=== PATIENT | female | born 1930 | race Caucasian/White ===

== ENCOUNTER 2016-05-18 13:17 | Inpatient (IN) | payer OTHER ==
[2016-05-18] VITALS (8 sets, daily range): BP systolic 154–166; BP diastolic 68–80
[~2016-05-18] VITALS: Ht 160 cm; Wt 82.7 kg
--- NOTE | ~2016-05-18 | 2DMMODE ---
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 Indications Sepsis, repiratory failure. Hx: Pacemaker 2D Dimensions RVDd: 40.53 mm LVEF(%): 54.24 (>50%) IVSd: 10.10 (7-11mm) LVOT Diam: 19.40 (18-24mm) LVDd: 40.73 mm PWd: 8.78 (7-11mm) LVDs: 29.44 (25-40mm) Hidalgo's LVEF: 54.24 % Volumes Left Atrial Volume (Systole) Single Plane 4CH: 59.80 mL Single Plane 2CH: 60.22 mL LA ESV Index: 35.00 mL/m2 Aortic Valve AoV Peak Charlie.: 1.63 m/s AO Peak Gr.: 10.63 mmHg LV Max P.60 mmHg LV Max: 1.07 m/s Mitral Valve MV PHT: 44.94 ms MV E Max Charlie.: 1.25 m/s E/A Ratio: 3.6 MV A Charlie.: 0.35 m/s MV Decel. Time: 154.98 ms [facility] [place] [address] [place] [address] 2 D/M-MODE ECHOCARDIOGRAM Name: KIM MOYER [place] Room #: [facility] IN M.R.#: [id number] Admission: 05/18/16 Attend Phys: Jenni Rubi Discharge: Date of : 31 Date of Service: 05/19/16 1229 Report #: [id number] Pulmonary Valve PV Peak Charlie.: 1.11 m/s PV Peak Gr.: 4.94 mmHg Tricuspid Valve TR Peak Charlie.: 3.08 m/s RAP Estimate: 10.00 mmHg TR Peak Gr.: 37.88 mmHg RVSP: 48.00 mmHg Left Ventricle The left ventricle is normal size. There is normal LV segmental wall motion. There is normal left ventricular wall thickness. Left ventricular systolic function is normal. LVEF is 55-60%. Difficult to assess due to paced rhythm. Right Ventricle Right ventricle is mildly dilated. The right ventricular systolic function appears normal. Pacemaker lead is present in the right ventricle. Atria Left atrium is mildly dilated. Right atrium is moderately dilated. Aortic Valve The aortic valve is normal in structure. Mild aortic regurgitation. There is no aortic valvular stenosis. Mitral Valve Mitral valve leaflets are mildly thickened. Mild mitral annular calcification. Mild mitral regurgitation. Tricuspid Valve The tricuspid valve is normal in structure. There is moderately severe tricuspid regurgitation. The right atrial pressure is estimated at 10 mmHg. There is moderate pulmonary hypertension with an estimated PAP of 48mmHg. Pulmonic Valve Pulmonic valve is not well visualized. Great Vessels The aortic root is normal in size. Descending aorta is not well visualized. IVC is dilated and collapses <50% with inspiration. Pericardium [facility] [address] [address] 2 D/M-MODE ECHOCARDIOGRAM Name: KIM MOYER [place] Room #: 250-P ADM IN M.R.#: [id number] Admission: 05/18/16 Attend Phys: Jenni Rubi Discharge: Date of : 31 Date of Service: 05/19/16 1229 Report #: [id number] There is no pericardial effusion. <Conclusion> The left ventricle is normal size. Left ventricular systolic function is normal. Right ventricle is mildly dilated. Pacemaker lead is present in the right ventricle. Left atrium is mildly dilated. Right atrium is moderately dilated. Mild aortic regurgitation. Mild mitral regurgitation. There is moderately severe tricuspid regurgitation. The right atrial pressure is estimated at 10 mmHg. There is moderate pulmonary hypertension with an estimated PAP of 48mmHg. <ELECTRONICALLY SIGNED> By: Pete Cool MD 05/19/16 1229 1229 1229 Pete Cool MD /INF
--- NOTE | ~2016-05-18 | HC ---
[facility] [place] [address] CONSULTATION Name: KIM MOYER Room #: 214-P ADM IN M.R.#: [id number] Admission: 05/18/16 Attend Phys: Shamir Navas MD Discharge: Date of : 31 Report #: [id number] THIS REPORT FOR: //name// CC: Shamir Heaton John HISTORY OF PRESENT ILLNESS: The patient is an 85-year-old white female, premorbidly independent, active, ambulatory without gait aids, had been doing some yard work when she pulled a muscle in her back. She was admitted and was diagnosed with community-acquired pneumonia. Her course was complicated with sepsis and she was noted to have a loculated pleural effusion with right empyema and marked leukocytosis. She underwent a bronchoscopy with the right video assisted thoracotomy with decortication on 05/20. Her course has been complicated by acute renal insufficiency and anasarca. She has been noted to have some dysphagia and has been on a nectar thickened liquid diet. She is status post a video swallow study earlier today with results pending. She also has had issues with malnutrition, noted to be severe protein-calorie malnutrition with decreased albumin and is on Dobhoff feeding for supplementation. She also has a diagnosis of a critical illness myopathy. We are seeing her in rehabilitation medicine consultation. Wound care is following as well for a suspected deep tissue injury coccyx, which is noted to be improving. PAST MEDICAL HISTORY: Hypertension, basal cell carcinoma, and osteoarthritis. PAST SURGICAL HISTORY: Hysterectomy. FAMILY HISTORY: Noncontributory. SOCIAL HISTORY: Lives with her , house multilevel with 6 steps in and 13 inside. She is premorbidly independent and ambulatory without gait aids. underwent coronary artery bypass grafting surgery about 6-8 weeks ago. HABITS: No history of chronic alcohol or tobacco use. ALLERGIES: PENICILLIN. MEDICATIONS: Please see the full medication listing. REVIEW OF SYSTEMS: Notes frustrated with her current condition. No specific joint complaints. No current complaints of chest pain or shortness of breath or abdominal discomfort. PHYSICAL EXAMINATION: GENERAL: An 85-year-old white female, somewhat overweight, no obvious distress. She is alert, somewhat cantankerous, but is cooperative[place] [address] CONSULTATION Name: KIM MOYER [place] Room #: 214-[facility] IN M.R.#: [id number] Admission: 05/18/16 Attend Phys: Shamir Navas MD Discharge: Date of : 31 Report #: [id number] She has a Dobhoff feeding tube in place and also is on nasal prong O2, 2 liters. VITAL SIGNS: Last recorded temperature 97.7, pulse 66, respirations 16, and blood pressure 124/43. EXTREMITIES: She has functional range of motion of the upper extremity, strength is a grade 3+ to 4-/5. Lower extremities, no focal calf swelling, functional range of motion with strength a grade 3+/5. Tone appeared to be intact. She is currently max assist times 2 for transfers and bed mobility is max assist times 2. ASSESSMENT: An 85-year-old white female with the following problem list: 1. Critical illness myopathy. 2. Right empyema, status post thoracotomy with decortication on 05/20. 3. Acute renal failure with improving diuresis. 4. Anasarca. 5. Protein-calorie malnutrition with hypoalbuminemia, currently with Dobhoff feeding. 6. Suspected deep to issue injury of the coccyx, noted to be improving. 7. Leukocytosis, which has resolved. 8. Anemia, which she is being monitored. PLAN: I encouraged her as far as further progressing in therapies and trying to improve as far as her endurance, strength and working in ADLs. She certainly may benefit from an acute in-hospital inpatient rehabilitation stay for therapies. I encouraged her in this regard. Discussed with case management. We will follow along with you. By: 1255 1551 Shamir Koroma MD /nt
--- NOTE | ~2016-05-18 | HC ---
[facility] [place] [address] CONSULTATION Name: KIM MOYERSA Room #: 240-P ADM IN M.R.#: [id number] Admission: 05/18/16 Attend Phys: Amaury May MD Discharge: Date of : 31 Report #: [id number] THIS REPORT FOR: //name// CC: Shamir Nunnva REASON FOR CONSULTATION: I was asked to evaluate the patient concerning pneumonia. HISTORY OF PRESENT ILLNESS: The patient is an 85-year-old, who presented to the Emergency Room with approximately 4-day history of right-sided back and chest discomfort. She thought she had pulled muscle. She has had no documented fever or chills. She has been short of breath with some cough, no sputum production, no previous pneumonia history. She is a nonsmoker with no alcohol intake. She has been caring through her , who just had open heart surgery about 6 weeks ago. PAST MEDICAL HISTORY: Hypertension, basal cell carcinoma, osteoarthritis. PAST SURGICAL HISTORY: Hysterectomy. FAMILY HISTORY: Noncontributory. SOCIAL HISTORY: As noted above with no HIV risk factors. No tuberculosis exposure. IMMUNIZATIONS: Up to date for influenza and pneumonia vaccine. ALLERGIES: She is allergic to PENICILLIN. Does not know the reaction, although does think that she has taken amoxicillin without issue. MEDICATIONS: Prior to admission included Benicar, hydrochlorothiazide, amlodipine, Toprol-XL, Xanax, estrogen, Celebrex, aspirin, and fish oil. REVIEW OF SYSTEMS: She has had no nausea, vomiting or diarrhea. No dysuria or frequency. No rashes. She says for the last several weeks, she has not felt well and has had a poor appetite. She feels she has lost several pounds of weight. PHYSICAL EXAMINATION: VITAL SIGNS: Afebrile and hemodynamically stable. She is now on 15 liters face mask. GENERAL: She was alert and cooperative. She was with coarse upper airway sounds. Minimal cough. HEENT: Unremarkable. NECK: Supple. She has a permanent pacemaker, left chest. LUNGS: Decreased breath sounds in the right posterior chest. [facility] [address] [place] [address] CONSULTATION Name: KIM MOYER [place] Room #: 240-P ADM IN M.R.#: [id number] Admission: 05/18/16 Attend Phys: Amaury May MD Discharge: Date of : 31 Report #: [id number] HEART: Regular, without murmur. ABDOMEN: Soft, nontender, no hepatosplenomegaly or mass. EXTREMITIES: Unremarkable. LABORATORY STUDIES: Sodium 120, potassium 3.6, bicarbonate 25, creatinine 1.1, alkaline phosphatase 386, ALT 25, hemoglobin 12.2, white count 45.5 with 4% bands, platelet count was 519,000 on 3.5 liters of oxygen. She had a pO2 of 57, pCO2 of 31, pH 7.47 with a lactate of 1.7. Urinalysis unremarkable. Ultrasound of the lower extremities negative for DVT. Chest x-ray shows right pneumonia with effusion. CT scan of the chest shows extensive right lung effusion with some loculation and fairly compressed right lower lobe. Blood cultures pending. No sputum able to be obtained. IMPRESSION: An 85-year-old with extensive right chest process including pneumonia and I suspect empyema. She has no fever, although she has a profound leukocytosis. A CT scan also showed some increased adenopathy in the chest. Recommend continuing treatment in the intensive care unit. Pulmonary medicine assist in case patient will require intubation. Repeat her blood gases now. We will arrange for right chest thoracentesis. We will continue with antibiotic coverage including vancomycin, meropenem, and Levaquin, pending further studies. Blood cultures have been obtained. We will also check echocardiogram. <ELECTRONICALLY SIGNED> By: Mitchell Victoria MD 05/22/16 1654 2043 0333 Mitchell Victoria MD /nt
--- NOTE | ~2016-05-18 | O ---
[facility] [place] [address] OPERATIVE REPORT Name: KIM MOYER [place] Room #: 240-P ADM IN M.R.#: [id number] Admission: 05/18/16 Attend Phys: Amaury May MD Discharge: Date of : 31 Report #: [id number] THIS REPORT FOR: //name// CC: Amaury Heaton John DATE OF SERVICE: 05/20/2016 PREOPERATIVE DIAGNOSIS: Empyema, right chest. POSTOPERATIVE DIAGNOSIS: Empyema, right chest. PROCEDURE: Bronchoscopy, right video-assisted thoracoscopy, right thoracotomy with decortication. SURGEON: Amaury May M.D. BOOT REPAIRER: Rito. ANESTHESIA: General. INDICATIONS: The patient is an 85-year-old with loculated pleural effusion. The patient has important pulmonary dysfunction related to this pleural space problem. FINDINGS AND TECHNIQUE: After general anesthesia was established, flexible diagnostic bronchoscopy was performed. There were some thick yellow secretions seen in the airway which were tenacious, but there was no other exuberant production of purulent sputum. No endobronchial lesions were noted. Double lumen endotracheal tube was placed and its position ascertained under bronchoscopic guidance. The patient was positioned with right side up. Exposure was obtained through video-assisted thoracoscopy ports. A loculated pleural effusion was seen with a mix of straw colored fluid and thick serofibrinous debris covering and compressing the lung. I thought that we would do our best job by performing a thoracotomy and decortication. As such, the incision was extended to perform a posterolateral thoracotomy. The entire lung was involved with serofibrinous debris with areas of loculated gel like fluid, all of this was decorticated down to the level of the visceral and parietal pleura. All 3 lobes were involved. The worst area of course was the lowest lobe and we entered a small area that appeared to be a loculated abscess at the anterior and lowest extent of the oblique fissure. [facility] [address] [address] OPERATIVE REPORT Name: KIM MOYER [place] Room #: 240-[facility] IN .R.#: [id number] Admission: 05/18/16 Attend Phys: Amaury May MD Discharge: Date of : 31 Report #: [id number] Samples were sent for pathology and culture. When we felt that the decortication was complete, the chest was irrigated with copious amounts of saline, 4 chest tubes were placed to drain the anterior, lateral, posterior, and inferior pleural surfaces and then the chest was closed in the usual fashion. The patient was taken to the recovery area in good condition having tolerated the procedure well. <ELECTRONICALLY SIGNED> By: Amaury May MD 05/24/16 1107 0840 1303 Amaury May MD /nt
--- NOTE | ~2016-05-18 | H ---
[facility] [place] [address] HISTORY AND PHYSICAL Name: KIM MOYER [place] Room #: 240-P ADM IN M.R.#: [id number] Admission: 05/18/16 Attend Phys: Amaury May MD Discharge: Date of : 31 Report #: [id number] THIS REPORT FOR: //name// CC: Shamir Heaton John DATE OF SERVICE: 05/18/2016 CHIEF COMPLAINT: Weakness and shortness of breath. HISTORY OF PRESENT ILLNESS: The patient is an 85-year-old female who came in the Emergency Room today with multiple complaints that began about 4 days ago. She said she was in her usual state of health on Saturday this week when she was doing some yard work and felt that she "pulled a muscle" in her back after moving a garden hose. She said the pain was so much worse with a deep breath turning her coughing that she ended up either lying in bed or sitting in a chair all week. The patient states that she has not been eating well and complained of nausea and has been "out of it" for a couple of days. Her said that all she has really been doing is drinking some fluids. She has, however, continued taking her home medications. She denies feeling short of breath at rest but felt tired when trying to move. She complained of cough and sinus congestion but denied any fever. PAST MEDICAL HISTORY: Hypertension, basal cell carcinoma, osteoarthritis. PAST SURGICAL HISTORY: Hysterectomy. FAMILY HISTORY: Noncontributory. SOCIAL HISTORY: No chronic alcohol or tobacco use. She lives at home with her . ALLERGIES: PENICILLIN. MEDICATIONS: Benicar/HCTZ, amlodipine, Toprol-XL, Xanax, estrogen, Celebrex, aspirin, fish oil. REVIEW OF SYSTEMS: She denies chest pain, palpitations, abdominal pain, nausea, vomiting, diarrhea, constipation, dysuria, syncope. PHYSICAL EXAMINATION: VITAL SIGNS: Temperature 36.4, pulse 79, respirations 19, blood pressure 166/80, initial room air sat was 86%, now at 93% on a ventimask. GENERAL: She is an elderly female who looks ill, but she is awake and alert, in no distress. HEAD AND NECK: Unremarkable. [facility] [address] [place] [address] HISTORY AND PHYSICAL Name: KIM MOYER [place] Room #: 240-[facility] IN M.R.#: [id number] Admission: 05/18/16 Attend Phys: Amaury May MD Discharge: Date of : 31 Report #: [id number] LUNGS: There is some expiratory wheezing bilaterally. HEART: Regular, no murmur. ABDOMEN: Soft, normoactive bowel sounds. EXTREMITIES: Trace nonpitting edema. Distal pulses 2+. NEUROLOGIC: She moves all extremities. Global strength 3-4/5 throughout. She knew that she was in [facility]. Venous Doppler ultrasound of the legs was negative. CTA of the chest was negative for PE. Chest x-ray shows a dense right-sided infiltrate. LABORATORY DATA: Reviewed with remarkable findings of white count of 45 with 86% segs but only 4% bands. Sodium of 119. ASSESSMENT: 1. Community acquired pneumonia. 2. Hyponatremia. 3. Sepsis. 4. Moderate protein calorie malnutrition with albumin 3.9. PLAN: Pancultures have been obtained and antibiotics had been administered. ID and Pulmonary Services to see her along with the Renal Service for the hyponatremia. This may be related to poor intake in the last few days and use of hydrochlorothiazide at home. Lovenox for DVT prophylaxis and she will be admitted to ICU. <ELECTRONICALLY SIGNED> By: Shamir Navas MD 05/21/16 1301 1741 1902 Shamir Navas MD /nt
--- NOTE | ~2016-05-18 | HC ---
[facility] [place] [address] CONSULTATION Name: KIM MOYERSA Room #: 240-P ADM IN M.R.#: [id number] Admission: 05/18/16 Attend Phys: Amaury May MD Discharge: Date of : 31 Report #: [id number] THIS REPORT FOR: //name// CC: Shamir Heaton John DATE OF SERVICE: 05/19/2016 REASON FOR CONSULTATION: We were asked to see the patient in consultation for loculated pleural effusion. HISTORY OF PRESENT ILLNESS: The patient is an 85-year-old with acute onset of right chest pain and shortness of breath approximately 4 days ago. Initially, the patient felt as though she had pulled the muscle in her back after doing some yardwork. Pain became worse and had a pleuritic component and then was associated with coughing, shortness of breath and sputum production. The patient denies having fever. These symptoms worsened until the patient was admitted on 05/18/2016. After admission, the patient was found to have a loculated pleural effusion. We note that thoracentesis was done yesterday, 650 mL of fluid was obtained, but the patient continued to have a pleural space problem. PAST MEDICAL HISTORY: Significant for hypertension, basal cell carcinoma and osteoarthritis. MEDICATIONS IN HOME: Benicar, hydrochlorothiazide, amlodipine, Toprol, Xanax, estrogen, Celebrex, aspirin and fish oil. ALLERGIES: PENICILLIN. FAMILY HISTORY: Not significant. REVIEW OF SYSTEMS: CONSTITUTIONAL: Generalized weakness positive. No fever. EYES: No vision changes. HEENT: No headache. No nasal congestion. No sore throat. RESPIRATORY: Positive for shortness of breath, sputum production and cough. CARDIAC: No anginal pain. The chest pain the patient has had is pleuritic and right-sided and shoulder pain. No palpitations. GASTROINTESTINAL: No nausea, vomiting or diarrhea. GENITOURINARY: No dysuria or frequency. SKIN: No rash or infection. MUSCULOSKELETAL: As mentioned back pain. No other bone or joint discomfort. NEUROLOGICAL: No motor or sensory dysfunction. PSYCHIATRIC: No depression or anxiety. [facility] [address] [place] [address] CONSULTATION Name: KIM MOYER [place] Room #: 240-P [facility] IN M.R.#: [id number] Admission: 05/18/16 Attend Phys: Amaury May MD Discharge: Date of : 31 Report #: [id number] HEMATOLOGIC AND LYMPHATIC: No swelling. No anemia. ENDOCRINE: No hot or cold intolerance. PHYSICAL EXAMINATION: VITAL SIGNS: Temperature 36.8, pulse rate 60, respiratory rate 29, O2 sat 92 on 15 liters of nonrebreather and blood pressure 132/61. HEENT: Normocephalic. Pupils equal and round. Gaze conjugate. No icterus noted. NECK: No lymphadenopathy. No bruit. CHEST: Decreased breath sounds, right side. HEART: Rhythm regular. No murmurs. ABDOMEN: Soft. No mass and no tenderness. EXTREMITIES: No clubbing, cyanosis or edema. 2+ radial pulses. SKIN: Warm and pink normal turgor. NEUROLOGICAL: No motor or sensory dysfunction. PSYCHIATRIC: Shows insight into problem and answers questions appropriately. The patient is oriented and appropriate. IMPRESSION: The patient appears to be weak without acute distress, but clearly requires high oxygen flow and has somewhat increased sense of vigilance due to respiratory dysfunction but grade 2 pulmonary dysfunction with secretions and tachypnea. ASSESSMENT AND PLAN: The patient has loculated right pleural effusion, suspicious for empyema and parapneumonic effusion. I have recommended that the patient have surgical exploration with video-assisted thoracoscopy and possible thoracotomy for decortication. Risks and details of this were discussed. Options and alternatives were reviewed. The patient and family understand all of this and agreed with this approach. The timing of surgery was discussed and we will either perform surgery tomorrow or Saturday. Thank you for the consult. <ELECTRONICALLY SIGNED> By: Amaury May MD 05/22/16 0829 1646 50 Amaury May MD /nt
--- NOTE | ~2016-05-18 | S ---
[facility] [address] SURGICAL PATH RPT PROCEDURE Name: NUZHAT CAMARILLO [place] Room #: 240-P ADM IN M.R.#: [id number] Admission: 05/18/16 Date of : 31 Discharge: Report #: [id number] Path Case #: [id number] PATHOLOGY REPORT COLLECTION DATE: 05/20/2016 RECEIVED DATE: 05/21/2016 SUBMITTING PHYS: Dr. Amaury May OTHER PHYS: Dr. Shamir Toledo SPECIMEN(S) RECEIVED: A.Right pleural exudate * * * * * * * * * * * * FINAL DIAGNOSIS: "Right pleural exudate," resection: - Pleura with acute and chronic inflammation, necrosis, granulation tissue, and fibrinous exudate consistent with empyema. (JORDANA:; d/t: 05/22/16) PATHOLOGIST: Jocelin Piña M.D. REPORT ELECTRONICALLY SIGNED BY: Jocelin Piña M.D. DATE/TIME: 05/22/2016 15:45 * * * * * * * * * * * * GROSS PATHOLOGY: The specimen is received in formalin, labeled "Nuzhat Camarillo and right pleural exudate." Received is a 12 x 6.5 x 3.0 cm aggregate of blood-tinged, diaz-lewis, rubbery, and necrotic appearing soft tissue. The specimen is serially sectioned and representatively submitted in cassette A1. (TTL; 05/21/2016) CLINICAL HISTORY: Pre-op diagnosis: Shortness of breath Post-op diagnosis: Empyema INITIAL CPT CODE(S): 60891 Professional services performed by [facility] at [facility] [address], [place] [address] Technical services performed by [facility] at [address] [place] [id number]. [facility] [address] [place] [address] SURGICAL PATH RPT PROCEDURE Name: NUZHAT CAMARILLO [place] Room #: 240-P [facility] IN .R.#: [id number] Admission: 05/18/16 Date of : 31 Discharge: Report #: [id number] Path Case #: [id number] [facility] [address] [address] PHONE: [phone] DIRECTOR: Shelton Romo M.D. * * * END OF REPORT * * *
--- NOTE | ~2016-05-18 | HC ---
[facility] [place] [address] CONSULTATION Name: KIM MOYERSA Room #: 240-P ADM IN M.R.#: [id number] Admission: 05/18/16 Attend Phys: Amaury May MD Discharge: Date of : 32 Report #: [id number] THIS REPORT FOR: //name// CC: Shamir Lopez REASON FOR CONSULTATION: Hyponatremia. REASON FOR PRESENTATION: Right-sided chest pain. HISTORY OF PRESENT ILLNESS: This is an 85-year-old who presented with sudden-onset right-sided chest pain associated with shortness of breath while working in the garden. No fever or chills. No cough or hemoptysis. She had felt somewhat weak in the last couple of days. She had reported that she had decreased p.o. intake. She took some Aleve in the last couple of days due to the chest pain. She presented to the emergency room for further evaluation and management. She initially thought that she pulled a muscle. However, she was found to have a loculated right-sided pleural effusion. On presentation, she was also found to be hyponatremic with sodium of 119. I was consulted to manage her hyponatremia. Looking back, this is all new. She never had any issues with hyponatremia in the past. She is not known to have any chronic kidney related diseases. PAST MEDICAL HISTORY: 1. Hypertension. 2. Hysterectomy. 3. Tonsillectomy. MEDICATIONS: 1. Amlodipine. 2. Olmesartan-hydrochlorothiazide. 3. Metoprolol. 4. Celebrex. 5. Aspirin. ALLERGIES: PENICILLIN. FAMILY HISTORY: Significant for hypertension and diabetes mellitus. SOCIAL HISTORY: No drug or alcohol abuse. She lives with her . REVIEW OF SYSTEMS: GENERAL: Significant for weakness. CARDIOVASCULAR: Significant for shortness of breath. PULMONARY: No cough or hemoptysis. GASTROINTESTINAL: Decreased p.o. intake. GENITOURINARY: No frequency. No urgency. [facility] [address] [place] [address] CONSULTATION Name: KIM MOYER [place] Room #: 240-P [facility] IN .R.#: [id number] Admission: 05/18/16 Attend Phys: Amaury May MD Discharge: Date of : 32 Report #: [id number] PHYSICAL EXAMINATION: GENERAL: She is alert, oriented, in no apparent distress. However, she easily de-saturates when taken off the mask. VITAL SIGNS: Pulse was 80, blood pressure 140/69. HEAD AND NECK: No jugular venous distention, no bruit, no thyromegaly. CHEST: Decreased air entry on the right side. CARDIOVASCULAR: No rub detected. ABDOMEN: Soft, nontender. LOWER EXTREMITIES: Trace edema. LABORATORY DATA: Laboratory values reviewed. White blood cell count down to 41.3. Chemistry revealed that her sodium was up to 124. Urine with a specific gravity of 1.025. IMAGES: CTs and chest x-rays reviewed. ASSESSMENT, IMPRESSION AND PLAN: 1. Hyponatremia. 2. Loculated right-sided pleural effusion. 3. Hypertension. 4. Her hyponatremia is multifactorial with ongoing chest process along with being on hydrochlorothiazide and nonsteroidals including Celebrex and Aleve. 5. Discontinue the current free water D5 half normal. 6. One dose Lasix. 7. Should correct by stopping the offending agent. 8. P.o. intake encouraged. 9. Her sodium is up by 6 milliequivalents from yesterday and this should be the target for today. We will look at her volume status and sodium levels in the morning and decide if she will need a little bit of help with extra fluid if needed. 10. No indication for . 11. Obtain usual hyponatremia workup. 12. Antibiotics per ID. 13. Ongoing workup for her loculated effusion. <ELECTRONICALLY SIGNED> By: Blake Morin MD 05/21/16 0745 0702 0730 Courtney Pires MD /nt
--- NOTE | ~2016-05-18 | CNG ---
[facility] [place] [address] CYTO-NONGYN REPORT PROCEDURE Name: NUZHAT CAMARILLO Room #: 240-P ADM IN M.R.#: [id number] Admission: 05/18/16 Date of : 32 Discharge: Report #: [id number] Path Case #: [id number] CYTOPATHOLOGY REPORT COLLECTION DATE: 05/18/2016 RECEIVED DATE: 05/21/2016 SUBMITTING PHYS: Dr. Mitchell Victoria OTHER PHYS: Dr. Shamir Toledo CLINICAL HISTORY: Pneumonia, leukocytosis, hyponatremia, renal insuff. See also [id number]. SPECIMEN(S) RECEIVED: A.Pleural fluid * * * * * * * * * * * * FINAL DIAGNOSIS: A. Pleural fluid: - No malignant cells identified. Proteinaceous debris, few mesothelial cells, and numerous inflammatory cells are present. PATHOLOGIST: Daphne Acosta M.D. REPORT ELECTRONICALLY SIGNED BY: Daphne Acosta M.D. DATE/TIME: 05/22/2016 14:39 * * * * * * * * * * * * GROSS PATHOLOGY: A. Pleural fluid: The specimen is submitted unfixed, labeled "Nuzhat Camarillo" Received by the Cytology Department is 10 mL of cloudy orange fluid. One ThinPrep slide and a cell block were prepared. (clt 05.21.2016) ASSEMBLY LINE SUPERVISOR(S): NATHAN Nassar(ASCP)IAC INITIAL CPT CODE(S): A; 97687, 45041 Professional services performed by [facility] at [facility] [address], [place] [address] Technical services performed by [facility] at [address] [place] [address]., [address], [place] [address]. [facility] [address] [place] [address], [address] [facility] [address] [place] [address] CYTO-NONGYN REPORT PROCEDURE Name: NUZHAT CAMARILLO [place] Room #: 240-P ADM IN M.R.#: [id number] Admission: 05/18/16 Date of : 32 Discharge: Report #: [id number] Path Case #: [id number] [place] [address] PHONE: [phone] DIRECTOR: Shelton Romo M.D. * * * END OF REPORT * * *
--- NOTE | ~2016-05-18 | EKG ---
[place] [address] [address] [place] [address] ELECTROCARDIOGRAM REPORT Name: KIM MOYER Room #: 170-10 ADM IN M.R.#: [id number] Admission: 05/18/16 Attend Phys: Shamir Navas MD Discharge: Date of : 32 Report #: [id number] THIS REPORT FOR: //name// [facility] ED Test Date: 2016-05-18 Test Time: 13:50:01 Pat Name: KIM MOYER Department: Room: 170 Gender: F Financial Counselor: MZOOPaola : 1930 Requested By: Laurence Barreto Order Number: [id number] MD: Pete Cool Measurements Intervals [place] Rate: 79 P: 56 MD: 250 QRS: -66 QRSD: 158 T: 93 QT: 456 QTc: 523 Interpretive Statements Atrial-sensed ventricular-paced rhythm No further analysis attempted due to paced rhythm No previous ECG available for comparison Electronically Signed On 05-18-2016 18:26:36 CDT by Pete Cool [email or web address] <ELECTRONICALLY SIGNED> By: Pete Cool MD 05/18/16 1826 1350 1350 Pete Cool MD /FELIPE
[~2016-05-18 13:17] MED LIST: ADULT LOW DOSE81 MG PO; ALPRAZOLAM; BENICAR20 MG PO; CELEBREX; FISHOIL; LOPRESSOR; OGEN0.75 MG PO
[2016-05-18 14:04] LABS: HEMOGLOBIN 12.2 gm/dL (12.0-15.0); MCH 30.6 pg (26.0-34.0); RBC 3.99 mil/uL (4.20-5.00)
[2016-05-18 14:07] LABS: HEMATOCRIT 36.1 % (37.0-47.0); MCHC 33.7 g/dL (28.0-37.0); MCV 90.6 fL (80.0-100.0); PLATELET COUNT 519 thou/uL (150-400)
[2016-05-18 14:09] LABS: MANUAL DIFF YES
[2016-05-18 14:10] LABS: ANION GAP 11 mmol/L (7-16); BUN 29 mg/dL (7-18); CALCIUM 9.7 mg/dL (8.5-10.1); CHLORIDE 84 mmol/L (98-107); CO2 24 mmol/L (21-32); CREATININE 1.3 mg/dL (0.6-1.3); GLUCOSE 218 mg/dL (70-99); POTASSIUM 3.6 mmol/L (3.5-5.1); WBC 45.5 thou/uL (4.0-11.0)
[2016-05-18 14:14] LABS: SODIUM 119 mmol/L (136-145)
[2016-05-18 14:20] LABS: TROPONIN-I < 0.04 ng/mL (<0.04-0.07)
[2016-05-18] MEDS ORDERED: OLMESARTAN-HCT1 EAC2 PO (14:29)
[2016-05-18] MEDS ORDERED: NORVASC5 MG PO (14:29)
[2016-05-18] MEDS ORDERED: ESTROPIPATE0.75 MG PO (14:29)
[2016-05-18] MEDS ORDERED: TOPROL XL100 MG PO (14:29)
[2016-05-18 14:36] LABS: ABG SAMPLE TYPE ARTERIAL; BE(vivo) -0.7 mmol/L (-2 to +3); HCO3 22.2 mmol/L (22.0-26.0); LACTATE 1.77 mmol/L (0.5-2.0); O2(CT) 15.5 mL/dL (15.0-23.0); O2Hb 90.5 % (92.0-98.0); PCO2 31.2 mmHg (35.0-45.0); PO2 57.4 mmHg (80.0-100.0); sO2 91.9 % (92.0-98.0); tCO2 23.2 mmol/L (24.0-30.0)
[2016-05-18 14:37] LABS: STICK SITE R.BRACHIAL
[2016-05-18 14:41] LABS: URINE BILIRUBIN NEGATIVE (Negative); URINE BLOOD NEGATIVE (Negative); URINE COLOR YELLOW; URINE GLUCOSE-RANDOM* NEGATIVE (Negative); URINE KETONES NEGATIVE (Negative); URINE NITRITE NEGATIVE (Negative); URINE PROTEIN (DIPSTICK) 1+ (Negative); URINE SPECIFIC GRAVITY 1.025 (1.003-1.035)
[2016-05-18 14:50] LABS: SQUAMOUS 0-3 Few /LPF (0-3); URINE WBC 0-5 Rare /HPF (0-5)
[2016-05-18 14:51] LABS: BACTERIA None Seen /HPF (None Seen); CASTS None Seen /LPF (None Seen); CRYSTALS None Seen /LPF (None Seen); URINE RBC None Seen /HPF (0-2)
[2016-05-18 14:58] LABS: MYELOCYTES 1 %; TOTAL CELL COUNT 100
[2016-05-18 15:15] LABS: ALBUMIN 2.9 g/dL (3.4-5.0); DIRECT BILIRUBIN 0.9 mg/dL (<0.1-0.3); TOTAL BILIRUBIN 1.5 mg/dL (<0.1-1.0); TOTAL PROTEIN 6.7 g/dL (6.4-8.2)
[2016-05-18 18:21] LABS: CALCIUM 8.9 mg/dL (8.5-10.1); CREATININE 1.1 mg/dL (0.6-1.3); POTASSIUM 3.6 mmol/L (3.5-5.1)
[2016-05-18 20:56] LABS: ABG SAMPLE TYPE ARTERIAL; BE(vivo) -7.3 mmol/L (-2 to +3); HCO3 17.9 mmol/L (22.0-26.0); LACTATE 2.07 mmol/L (0.5-2.0); O2(CT) 13.3 mL/dL (15.0-23.0); O2Hb 90.7 % (92.0-98.0); PCO2 34.8 mmHg (35.0-45.0); PO2 67.7 mmHg (80.0-100.0); pH 7.329 (7.360-7.450); sO2 92.5 % (92.0-98.0)
[2016-05-18 20:57] LABS: STICK SITE L.RADIAL
[2016-05-18 22:16] LABS: INR 1.2; PROTIME 12.2 Seconds (9.3-11.4)
[2016-05-18 23:27] LABS: CLARITY TURBID; COLOR AMBER; TOTAL VOLUME 60 mL
[2016-05-18 23:36] LABS: BF NUCLEATED CELLS 2746; BF RBC 8643
[2016-05-19] VITALS (25 sets, daily range): BP systolic 132–165; BP diastolic 56–134
[2016-05-19 00:47] LABS: CALCIUM 8.1 mg/dL (8.5-10.1); CREATININE 1.1 mg/dL (0.6-1.3); POTASSIUM 3.4 mmol/L (3.5-5.1)
[2016-05-19 00:47] LABS: BF COMMENTS 9; BF MACROPHAGE 17; BF NEUTROPHILS 71
[2016-05-19 05:38] LABS: HEMOGLOBIN 10.5 gm/dL (12.0-15.0); MCH 30.6 pg (26.0-34.0); MCV 90.1 fL (80.0-100.0); PLATELET COUNT 464 thou/uL (150-400); RBC 3.44 mil/uL (4.20-5.00); RDW 13.1 % (10.5-14.5)
[2016-05-19 05:41] LABS: MANUAL DIFF YES
[2016-05-19 05:42] LABS: WBC 41.3 thou/uL (4.0-11.0)
[2016-05-19 06:01] LABS: ALBUMIN 2.1 g/dL (3.4-5.0); CALCIUM 8.1 mg/dL (8.5-10.1); CREATININE 1.1 mg/dL (0.6-1.3); POTASSIUM 3.6 mmol/L (3.5-5.1); TOTAL BILIRUBIN 0.9 mg/dL (<0.1-1.0)
[2016-05-19 06:19] LABS: ABSOLUTE NEUTROPHILS 39.6 thou/uL (1.4-8.2); ANISOCYTOSIS 1+; POLYCHROMASIA OCCASIONAL; TOTAL CELL COUNT 100
[2016-05-19 06:49] LABS: MANUAL DIFF YES
[2016-05-19 11:06] LABS: URINE CREATININE-RANDOM* 104.8 mg/dL (Not Estab.)
[2016-05-19 16:06] LABS: BODY FLUID ALBUMIN 2.2 g/dL (()); BODY FLUID AMYLASE 4 U/L (()); BODY FLUID GLUCOSE 83 mg/dL (()); BODY FLUID LDH 818 IU/L (()); BODY FLUID PROTEIN 3.7 g/dL (())
[2016-05-20] VITALS (22 sets, daily range): BP systolic 105–166; BP diastolic 44–60
[2016-05-20 05:57] LABS: CALCIUM 8.3 mg/dL (8.5-10.1); CREATININE 1.4 mg/dL (0.6-1.3); PHOSPHORUS 3.9 mg/dL (2.5-4.9)
[2016-05-20 05:59] LABS: POTASSIUM 2.9 mmol/L (3.5-5.1)
[2016-05-20 14:44] LABS: ABG SAMPLE TYPE ARTERIAL; BE(vivo) -7.9 mmol/L (-2 to +3); HCO3 19.4 mmol/L (22.0-26.0); LACTATE 1.81 mmol/L (0.5-2.0); O2Hb 91.6 % (92.0-98.0); PCO2 47.5 mmHg (35.0-45.0); PO2 78.2 mmHg (80.0-100.0); sO2 93.2 % (92.0-98.0); tCO2 20.9 mmol/L (24.0-30.0)
[2016-05-20 14:45] LABS: STICK SITE ALINE; TIDAL VOLUME 470 ml; pH 7.229 (7.360-7.450)
[2016-05-20 15:55] LABS: ABG SAMPLE TYPE ARTERIAL; HCO3 19.1 mmol/L (22.0-26.0); LACTATE 1.68 mmol/L (0.5-2.0); O2(CT) 15.6 mL/dL (15.0-23.0); O2Hb 93.7 % (92.0-98.0); PCO2 45.6 mmHg (35.0-45.0); PO2 86.6 mmHg (80.0-100.0); tCO2 20.5 mmol/L (24.0-30.0)
[2016-05-20 15:57] LABS: STICK SITE ALINE; TIDAL VOLUME 470 ml; pH 7.241 (7.360-7.450)
[2016-05-20 19:41] LABS: ABG SAMPLE TYPE ARTERIAL; HCO3 18.6 mmol/L (22.0-26.0); LACTATE 1.91 mmol/L (0.5-2.0); O2(CT) 14.3 mL/dL (15.0-23.0); PCO2 42.4 mmHg (35.0-45.0); PO2 63.8 mmHg (80.0-100.0); sO2 89.2 % (92.0-98.0); tCO2 19.9 mmol/L (24.0-30.0)
[2016-05-20 19:42] LABS: STICK SITE ALINE; TIDAL VOLUME 500 ml; pH 7.261 (7.360-7.450)
[2016-05-20 20:33] LABS: ABG SAMPLE TYPE ARTERIAL; BE(vivo) -7.6 mmol/L (-2 to +3); HCO3 17.7 mmol/L (22.0-26.0); LACTATE 1.83 mmol/L (0.5-2.0); O2(CT) 14.3 mL/dL (15.0-23.0); O2Hb 91.2 % (92.0-98.0); PO2 65.4 mmHg (80.0-100.0); sO2 91.6 % (92.0-98.0); tCO2 18.7 mmol/L (24.0-30.0)
[2016-05-20 20:34] LABS: STICK SITE ALINE; pH 7.321 (7.360-7.450)
[2016-05-20 20:35] LABS: TIDAL VOLUME 550 ml
[2016-05-21] VITALS (15 sets, daily range): BP systolic 119–163; BP diastolic 42–63
[2016-05-21 05:03] LABS: ABG SAMPLE TYPE ARTERIAL; HCO3 17.3 mmol/L (22.0-26.0); LACTATE 1.86 mmol/L (0.5-2.0); O2(CT) 15.6 mL/dL (15.0-23.0); O2Hb 95.7 % (92.0-98.0); PCO2 27.4 mmHg (35.0-45.0); PO2 84.4 mmHg (80.0-100.0); pH 7.417 (7.360-7.450); sO2 96.7 % (92.0-98.0); tCO2 18.1 mmol/L (24.0-30.0)
[2016-05-21 05:04] LABS: STICK SITE LINE; TIDAL VOLUME 550 ml
[2016-05-21 05:06] LABS: HEMATOCRIT 31.4 % (37.0-47.0); HEMOGLOBIN 10.6 gm/dL (12.0-15.0); MCH 30.4 pg (26.0-34.0); MCHC 33.8 g/dL (28.0-37.0); MCV 89.9 fL (80.0-100.0); RBC 3.49 mil/uL (4.20-5.00); WBC 32.2 thou/uL (4.0-11.0)
[2016-05-21 05:22] LABS: ALBUMIN 1.5 g/dL (3.4-5.0); CALCIUM 7.8 mg/dL (8.5-10.1); CREATININE 1.7 mg/dL (0.6-1.3); PHOSPHORUS 3.7 mg/dL (2.5-4.9); POTASSIUM 3.3 mmol/L (3.5-5.1)
[2016-05-21 17:49] LABS: CALCIUM 7.8 mg/dL (8.5-10.1); POTASSIUM 3.8 mmol/L (3.5-5.1)
[2016-05-22] VITALS (11 sets, daily range): BP systolic 102–154; BP diastolic 31–96
[2016-05-22 05:19] LABS: HEMATOCRIT 28.6 % (37.0-47.0); HEMOGLOBIN 9.9 gm/dL (12.0-15.0); MCH 30.7 pg (26.0-34.0); MCHC 34.5 g/dL (28.0-37.0); RBC 3.21 mil/uL (4.20-5.00); RDW 13.5 % (10.5-14.5); WBC 29.7 thou/uL (4.0-11.0)
[2016-05-22 05:31] LABS: ALBUMIN 1.4 g/dL (3.4-5.0); CALCIUM 7.9 mg/dL (8.5-10.1); CREATININE 2.4 mg/dL (0.6-1.3); MAGNESIUM 1.9 mg/dL (1.8-2.4); PHOSPHORUS 4.3 mg/dL (2.5-4.9); POTASSIUM 3.9 mmol/L (3.5-5.1)
[2016-05-22 09:47] LABS: ABG SAMPLE TYPE ARTERIAL; BE(vivo) -10.4 mmol/L (-2 to +3); HCO3 15.8 mmol/L (22.0-26.0); LACTATE 1.67 mmol/L (0.5-2.0); O2(CT) 14.6 mL/dL (15.0-23.0); O2Hb 90.1 % (92.0-98.0); PCO2 36.2 mmHg (35.0-45.0); sO2 92.3 % (92.0-98.0); tCO2 16.9 mmol/L (24.0-30.0)
[2016-05-22 09:48] LABS: Pressure Support 8 cm H20; STICK SITE ART LINE; VDS CPAP TRIAL X 1 HOUR cc; pH 7.258 (7.360-7.450)
[2016-05-22 17:42] LABS: CALCIUM 7.6 mg/dL (8.5-10.1); CREATININE 2.8 mg/dL (0.6-1.3); POTASSIUM 4.1 mmol/L (3.5-5.1)
[2016-05-23] VITALS (17 sets, daily range): BP systolic 121–151; BP diastolic 36–50
[2016-05-23 04:48] LABS: HEMATOCRIT 27.7 % (37.0-47.0); HEMOGLOBIN 9.5 gm/dL (12.0-15.0); MCH 30.6 pg (26.0-34.0); MCHC 34.3 g/dL (28.0-37.0); MCV 89.3 fL (80.0-100.0); RBC 3.1 mil/uL (4.20-5.00); RDW 13.4 % (10.5-14.5); WBC 29.5 thou/uL (4.0-11.0)
[2016-05-23 04:56] LABS: ALBUMIN 1.4 g/dL (3.4-5.0); CALCIUM 7.7 mg/dL (8.5-10.1); MAGNESIUM 1.9 mg/dL (1.8-2.4); PHOSPHORUS 5.3 mg/dL (2.5-4.9); POTASSIUM 3.9 mmol/L (3.5-5.1)
[2016-05-23 09:46] LABS: ABG COMMENT 2 HRS CPAP; ABG SAMPLE TYPE ARTERIAL; HCO3 17.2 mmol/L (22.0-26.0); LACTATE 1.78 mmol/L (0.5-2.0); O2(CT) 13.2 mL/dL (15.0-23.0); O2Hb 89.7 % (92.0-98.0); PO2 63.1 mmHg (80.0-100.0); Pressure Support 5 cm H20; STICK SITE LINE; pH 7.376 (7.360-7.450); sO2 92.1 % (92.0-98.0); tCO2 18.1 mmol/L (24.0-30.0)
[2016-05-24] VITALS (28 sets, daily range): BP systolic 130–189; BP diastolic 34–66
[2016-05-24 05:02] LABS: ALBUMIN 1.4 g/dL (3.4-5.0); CALCIUM 7.7 mg/dL (8.5-10.1); CREATININE 3.1 mg/dL (0.6-1.3); HEMATOCRIT 28.7 % (37.0-47.0); HEMOGLOBIN 9.6 gm/dL (12.0-15.0); MCH 29.9 pg (26.0-34.0); MCHC 33.5 g/dL (28.0-37.0); MCV 89.3 fL (80.0-100.0); PHOSPHORUS 6.9 mg/dL (2.5-4.9); POTASSIUM 3.9 mmol/L (3.5-5.1); RBC 3.21 mil/uL (4.20-5.00); RDW 13.5 % (10.5-14.5); WBC 31.4 thou/uL (4.0-11.0)
[2016-05-25] VITALS (20 sets, daily range): BP systolic 123–153; BP diastolic 37–76
[2016-05-25 05:39] LABS: HEMATOCRIT 28.2 % (37.0-47.0); HEMOGLOBIN 9.6 gm/dL (12.0-15.0); MCH 30.5 pg (26.0-34.0); MCV 89.6 fL (80.0-100.0); RBC 3.14 mil/uL (4.20-5.00); RDW 13.4 % (10.5-14.5); WBC 32.7 thou/uL (4.0-11.0)
[2016-05-25 05:40] LABS: ALBUMIN 1.5 g/dL (3.4-5.0); CALCIUM 7.9 mg/dL (8.5-10.1); CREATININE 3.3 mg/dL (0.6-1.3); MAGNESIUM 2.1 mg/dL (1.8-2.4); POTASSIUM 4.3 mmol/L (3.5-5.1)
[2016-05-25 11:22] LABS: URINE BILIRUBIN NEGATIVE (Negative); URINE BLOOD 2+ (Negative); URINE COLOR YELLOW; URINE GLUCOSE-RANDOM* NEGATIVE (Negative); URINE KETONES TRACE (Negative); URINE NITRITE NEGATIVE (Negative); URINE PROTEIN (DIPSTICK) 2+ (Negative); URINE SPECIFIC GRAVITY 1.025 (1.003-1.035); URINE UROBILINOGEN 0.2 E.U./dl (0.2-1.0)
[2016-05-25 11:27] LABS: SQUAMOUS 0-3 Few /LPF (0-3); URINE RBC 3-10 Few /HPF (0-2); URINE WBC None Seen /HPF (0-5)
[2016-05-25 11:28] LABS: AMORPHOUS URATES Few /LPF (None Seen); BACTERIA None Seen /HPF (None Seen); CASTS None Seen /LPF (None Seen); CRYSTALS None Seen /LPF (None Seen)
[2016-05-26] VITALS (23 sets, daily range): BP systolic 118–155; BP diastolic 43–90
[2016-05-26 00:09] LABS: URINE CREATININE-RANDOM* 63.7 mg/dL (Not Estab.); URINE PROTEIN-RANDOM* 131.1 mg/dL (Not Estab.)
[2016-05-26 05:45] LABS: HEMATOCRIT 26.4 % (37.0-47.0); HEMOGLOBIN 8.9 gm/dL (12.0-15.0); MCH 30.2 pg (26.0-34.0); MCHC 33.8 g/dL (28.0-37.0); MCV 89.3 fL (80.0-100.0); RBC 2.96 mil/uL (4.20-5.00); RDW 13.5 % (10.5-14.5); WBC 28.5 thou/uL (4.0-11.0)
[2016-05-26 06:00] LABS: ALBUMIN 1.6 g/dL (3.4-5.0); CALCIUM 7.7 mg/dL (8.5-10.1); CREATININE 3.2 mg/dL (0.6-1.3); POTASSIUM 3.7 mmol/L (3.5-5.1)
[2016-05-27] VITALS (21 sets, daily range): BP systolic 128–183; BP diastolic 46–60
[2016-05-27 11:00] LABS: CALCIUM 8.2 mg/dL (8.5-10.1); CREATININE 2.9 mg/dL (0.6-1.3); POTASSIUM 3.2 mmol/L (3.5-5.1)
[2016-05-28 04:30] VITALS: BP 159/67
[2016-05-28 06:17] LABS: CALCIUM 8.1 mg/dL (8.5-10.1); CREATININE 3.1 mg/dL (0.6-1.3)
[2016-05-28 06:28] LABS: HEMOGLOBIN 8.4 gm/dL (12.0-15.0); MCH 30.4 pg (26.0-34.0); MCHC 33.6 g/dL (28.0-37.0); MCV 90.3 fL (80.0-100.0); RBC 2.77 mil/uL (4.20-5.00); RDW 13.6 % (10.5-14.5)
[2016-05-28 07:50] VITALS: BP 138/38
[2016-05-28 10:50] VITALS: BP 168/39
[2016-05-28 16:55] VITALS: BP 130/35
[2016-05-28 19:36] VITALS: BP 133/50
[2016-05-28 23:58] VITALS: BP 127/73
[2016-05-29 04:00] VITALS: BP 98/51
[2016-05-29 04:16] LABS: ALBUMIN 1.7 g/dL (3.4-5.0); CALCIUM 8.4 mg/dL (8.5-10.1)
[2016-05-29 04:19] LABS: POTASSIUM 4.2 mmol/L (3.5-5.1)
[2016-05-29 07:19] VITALS: BP 139/59
[2016-05-29 11:27] VITALS: BP 124/43
[2016-05-29 17:32] VITALS: BP 120/50
[2016-05-29 19:22] VITALS: BP 121/40
[2016-05-30 04:35] VITALS: BP 125/41
[2016-05-30 05:06] LABS: HEMATOCRIT 24.5 % (37.0-47.0); HEMOGLOBIN 8.2 gm/dL (12.0-15.0); MCH 30.5 pg (26.0-34.0); MCHC 33.4 g/dL (28.0-37.0); MCV 91.3 fL (80.0-100.0); RBC 2.68 mil/uL (4.20-5.00); RDW 13.8 % (10.5-14.5); WBC 19.6 thou/uL (4.0-11.0)
[2016-05-30 05:16] LABS: ALBUMIN 1.7 g/dL (3.4-5.0); CALCIUM 8.7 mg/dL (8.5-10.1); CREATININE 3.1 mg/dL (0.6-1.0); MAGNESIUM 2.1 mg/dL (1.8-2.4); PHOSPHORUS 4.5 mg/dL (2.5-4.9); POTASSIUM 4.1 mmol/L (3.5-5.1)
[2016-05-30 06:38] VITALS: BP 120/72
[2016-05-30 07:20] VITALS: BP 130/42
[2016-05-30 11:30] VITALS: BP 123/43
[2016-05-30 16:00] VITALS: BP 104/51
[2016-05-30 19:53] VITALS: BP 124/42
[2016-05-31 04:23] VITALS: BP 117/43
[2016-05-31 05:05] LABS: HEMATOCRIT 22.9 % (37.0-47.0); HEMOGLOBIN 7.5 gm/dL (12.0-15.0); MCH 30.1 pg (26.0-34.0); MCV 91.4 fL (80.0-100.0); RBC 2.5 mil/uL (4.20-5.00); RDW 13.9 % (10.5-14.5); WBC 16.3 thou/uL (4.0-11.0)
[2016-05-31 05:35] LABS: ALBUMIN 1.6 g/dL (3.4-5.0); CALCIUM 8.4 mg/dL (8.5-10.1); CREATININE 3.4 mg/dL (0.6-1.0); PHOSPHORUS 5.6 mg/dL (2.5-4.9); POTASSIUM 4.6 mmol/L (3.5-5.1)
[2016-05-31 07:30] VITALS: BP 105/52
[2016-05-31 11:47] VITALS: BP 127/43
[2016-05-31 15:05] VITALS: BP 118/32
[2016-05-31 20:28] VITALS: BP 123/41
[2016-05-31 21:01] VITALS: BP 120/52
[2016-06-01 04:08] VITALS: BP 183/66
[2016-06-01 07:18] LABS: ALBUMIN 1.7 g/dL (3.4-5.0); CALCIUM 8.6 mg/dL (8.5-10.1); CREATININE 3.6 mg/dL (0.6-1.0); PHOSPHORUS 6.2 mg/dL (2.5-4.9); POTASSIUM 4.4 mmol/L (3.5-5.1)
[2016-06-01 08:00] VITALS: BP 114/58
[2016-06-01 12:38] VITALS: BP 108/51
[2016-06-01 17:14] VITALS: BP 120/60
[2016-06-01 19:57] VITALS: BP 128/49
[2016-06-02 03:52] VITALS: BP 113/41
[2016-06-02 04:50] LABS: ALBUMIN 1.6 g/dL (3.4-5.0); CALCIUM 8.4 mg/dL (8.5-10.1); CREATININE 3.6 mg/dL (0.6-1.0); PHOSPHORUS 6.3 mg/dL (2.5-4.9); POTASSIUM 4.2 mmol/L (3.5-5.1)
[2016-06-02 11:45] VITALS: BP 126/58
[2016-06-02 16:30] VITALS: BP 126/50
[2016-06-02 20:15] VITALS: BP 127/46
[2016-06-03 03:36] VITALS: BP 128/45
[2016-06-03 04:45] LABS: ALBUMIN 1.6 g/dL (3.4-5.0); CALCIUM 8.5 mg/dL (8.5-10.1); CREATININE 3.5 mg/dL (0.6-1.0); POTASSIUM 4.1 mmol/L (3.5-5.1)
[2016-06-03 08:15] VITALS: BP 140/56
[2016-06-03 12:15] VITALS: BP 130/54
[2016-06-03 16:50] VITALS: BP 124/53
[2016-06-03 20:15] VITALS: BP 94/64
[2016-06-04 03:08] VITALS: BP 122/55
[2016-06-04 03:50] LABS: ABSOLUTE NEUTROPHILS 7.4 thou/uL (1.4-8.2); BASOPHILS 0.9 % (0.0-2.0); EOSINOPHILS 1.9 % (0.0-3.0); HEMATOCRIT 22.7 % (37.0-47.0); HEMOGLOBIN 7.7 gm/dL (12.0-15.0); LYMPHOCYTES 9.1 % (24.0-44.0); MCH 30.5 pg (26.0-34.0); MCHC 33.8 g/dL (28.0-37.0); MCV 90.3 fL (80.0-100.0); MONOCYTES 4.7 % (1.0-8.0); PLATELET COUNT 250 thou/uL (150-400); POLYS 83.4 % (36.0-66.0); RBC 2.52 mil/uL (4.20-5.00); RDW 13.7 % (10.5-14.5); WBC 8.9 thou/uL (4.0-11.0)
[2016-06-04 03:57] LABS: MANUAL DIFF NO
[2016-06-04 03:59] LABS: ALBUMIN 1.7 g/dL (3.4-5.0); CALCIUM 8.6 mg/dL (8.5-10.1); CREATININE 3.4 mg/dL (0.6-1.0); PHOSPHORUS 5.9 mg/dL (2.5-4.9)
[2016-06-04 07:26] VITALS: BP 124/59
[2016-06-04 12:55] VITALS: BP 130/65
[2016-06-04 17:03] VITALS: BP 125/55
[2016-06-04 19:31] VITALS: BP 170/57
[2016-06-04 23:44] VITALS: BP 137/40
[2016-06-05 03:50] VITALS: BP 119/40; BP 87/45
[2016-06-05 04:53] LABS: ALBUMIN 1.8 g/dL (3.4-5.0); CALCIUM 8.4 mg/dL (8.5-10.1); CREATININE 3.3 mg/dL (0.6-1.0); PHOSPHORUS 5.9 mg/dL (2.5-4.9)
[2016-06-05 07:35] VITALS: BP 122/41
[2016-06-05] MEDS ORDERED: ROCEPHIN 11 GM/1001 IV (09:28)
[2016-06-05] MEDS ORDERED: ALDACTONE25 MG PER TUBE (09:29)
[2016-06-05] MEDS ORDERED: NYSTATIN 1100000 U/M SWISH&SPIT (09:29)
[2016-06-05] MEDS ORDERED: DUONEB 2.5-0.5 M3 ML INH (09:29)
[2016-06-05] MEDS ORDERED: ENOXAPARIN30 MG/0.1 SUBQ (09:29)
[2016-06-05] MEDS ORDERED: ACETAMINOPHEN325 M1 PO (09:30)
[2016-06-05] MEDS ORDERED: COLACE 100 MG100 MG PO (09:30)
[2016-06-05] MEDS ORDERED: DEMADEX20 MG PO (09:30)
[2016-06-05] MEDS ORDERED: HYDROCODON-ACE1 EAC7 PO (09:30)
[2016-06-05] MEDS ORDERED: ONDANSETRON HCL4 M1 IV PUSH (09:31)
[2016-06-05] MEDS ORDERED: PEPCID20 MG PO (09:31)
[2016-06-05] MEDS ORDERED: MILK OF MA2400 MG/10 PO (09:31)
[2016-06-05 12:15] VITALS: BP 122/46
[2016-06-05 19:15] VITALS: BP 136/46
[2016-06-06 02:06] LABS: ALBUMIN 1.7 g/dL (3.4-5.0); CALCIUM 8.7 mg/dL (8.5-10.1); CREATININE 3.1 mg/dL (0.6-1.0); PHOSPHORUS 5.1 mg/dL (2.5-4.9); POTASSIUM 3.7 mmol/L (3.5-5.1)
[2016-06-06 04:00] VITALS: BP 115/44
[2016-06-06 08:42] VITALS: BP 124/43
[2016-06-06 16:06] VITALS: BP 149/58
[2016-06-06 19:28] VITALS: BP 129/57
[2016-06-07 04:42] VITALS: BP 127/60
[2016-06-07 06:08] LABS: ALBUMIN 1.8 g/dL (3.4-5.0); CALCIUM 8.4 mg/dL (8.5-10.1); CREATININE 2.8 mg/dL (0.6-1.0); PHOSPHORUS 4.7 mg/dL (2.5-4.9); POTASSIUM 3.8 mmol/L (3.5-5.1)
[2016-06-07 07:23] VITALS: BP 127/44
[2016-06-07 11:13] VITALS: BP 114/59
[2016-06-07 14:43] VITALS: BP 129/48
[2016-06-07 19:33] VITALS: BP 110/49
[2016-06-08 04:55] VITALS: BP 113/48
[2016-06-08 05:07] LABS: ABSOLUTE NEUTROPHILS 3.9 thou/uL (1.4-8.2); WBC 5.2 thou/uL (4.0-11.0)
[2016-06-08 05:08] LABS: BASOPHILS 1.1 % (0.0-2.0); EOSINOPHILS 6.8 % (0.0-3.0); HEMATOCRIT 20.7 % (37.0-47.0); LYMPHOCYTES 11.7 % (24.0-44.0); MCH 30.2 pg (26.0-34.0); MCHC 33.7 g/dL (28.0-37.0); MCV 89.4 fL (80.0-100.0); PLATELET COUNT 257 thou/uL (150-400); POLYS 75.4 % (36.0-66.0); RBC 2.31 mil/uL (4.20-5.00); RDW 13.7 % (10.5-14.5)
[2016-06-08 05:11] LABS: MANUAL DIFF NO
[2016-06-08 05:14] LABS: ALBUMIN 1.7 g/dL (3.4-5.0); CALCIUM 8.2 mg/dL (8.5-10.1); CREATININE 2.7 mg/dL (0.6-1.0); PHOSPHORUS 4.8 mg/dL (2.5-4.9); POTASSIUM 3.6 mmol/L (3.5-5.1)
[2016-06-08 07:40] VITALS: BP 133/50
[2016-06-08 11:50] VITALS: BP 114/57
[2016-06-08 15:50] VITALS: BP 137/49
[2016-06-08 19:49] VITALS: BP 127/48
[2016-06-09 04:00] VITALS: BP 108/51
[2016-06-09 04:03] VITALS: BP 1058/51; BP 108/51
[2016-06-09 07:23] LABS: ALBUMIN 1.8 g/dL (3.4-5.0); CALCIUM 8.8 mg/dL (8.5-10.1); CREATININE 2.5 mg/dL (0.6-1.0); PHOSPHORUS 4.7 mg/dL (2.5-4.9); POTASSIUM 3.7 mmol/L (3.5-5.1)
[2016-06-09 07:30] VITALS: BP 114/46
[2016-06-09 11:05] VITALS: BP 113/56
[2016-06-09 15:10] VITALS: BP 147/55
[2016-06-09 20:03] VITALS: BP 145/58
[2016-06-10 04:20] VITALS: BP 138/54
[2016-06-10 05:54] LABS: ALBUMIN 1.9 g/dL (3.4-5.0); CALCIUM 8.3 mg/dL (8.5-10.1); CREATININE 2.4 mg/dL (0.6-1.0); POTASSIUM 3.7 mmol/L (3.5-5.1)
[2016-06-10 08:05] VITALS: BP 123/55
[2016-06-10 11:50] VITALS: BP 124/51
[2016-06-10 15:10] VITALS: BP 141/70
[2016-06-10 19:47] VITALS: BP 148/71
[2016-06-10 23:35] VITALS: BP 125/46
[2016-06-11] VITALS (7 sets, daily range): BP systolic 125–161; BP diastolic 54–76
[2016-06-11 06:17] LABS: CALCIUM 8.4 mg/dL (8.5-10.1); CREATININE 2.3 mg/dL (0.6-1.0)
[2016-06-11 08:58] LABS: WBC 5.7 thou/uL (4.0-11.0)
[2016-06-11 09:00] LABS: ABSOLUTE NEUTROPHILS 4.1 thou/uL (1.4-8.2); BASOPHILS 1.1 % (0.0-2.0); EOSINOPHILS 3.6 % (0.0-3.0); HEMATOCRIT 20.6 % (37.0-47.0); LYMPHOCYTES 16.5 % (24.0-44.0); MCH 29.3 pg (26.0-34.0); MCHC 32.9 g/dL (28.0-37.0); MCV 89.1 fL (80.0-100.0); MONOCYTES 6.1 % (1.0-8.0); PLATELET COUNT 296 thou/uL (150-400); POLYS 72.7 % (36.0-66.0); RBC 2.31 mil/uL (4.20-5.00); RDW 14.2 % (10.5-14.5)
[2016-06-11 09:02] LABS: MANUAL DIFF NO
[2016-06-11 09:03] LABS: HEMOGLOBIN 6.8 gm/dL (12.0-15.0)
[2016-06-11 23:26] LABS: HEMATOCRIT 27.5 % (37.0-47.0); MCH 30.4 pg (26.0-34.0); MCV 86.9 fL (80.0-100.0); RBC 3.16 mil/uL (4.20-5.00); RDW 14.2 % (10.5-14.5); WBC 9.1 thou/uL (4.0-11.0)
[2016-06-11 23:34] LABS: HEMOGLOBIN 9.6 gm/dL (12.0-15.0)
[2016-06-12 03:51] VITALS: BP 135/55
[2016-06-12 06:03] LABS: CALCIUM 8.5 mg/dL (8.5-10.1); CREATININE 2.3 mg/dL (0.6-1.0); POTASSIUM 4.1 mmol/L (3.5-5.1)
[2016-06-12 07:04] VITALS: BP 130/51
[2016-06-12 11:09] VITALS: BP 131/57
[2016-06-12 16:01] VITALS: BP 147/73
[2016-06-12 20:20] VITALS: BP 138/50
[2016-06-13 03:40] VITALS: BP 116/69
[2016-06-13 07:08] LABS: CALCIUM 8.4 mg/dL (8.5-10.1); CREATININE 2.1 mg/dL (0.6-1.0); PHOSPHORUS 4.4 mg/dL (2.5-4.9)
[2016-06-13 07:15] VITALS: BP 124/56
[2016-06-13 11:40] VITALS: BP 126/64
[2016-06-13 15:18] VITALS: BP 135/61
[2016-06-13 20:11] VITALS: BP 138/64
[2016-06-14 05:02] VITALS: BP 128/52
[2016-06-14 06:41] LABS: HEMATOCRIT 29.1 % (37.0-47.0); HEMOGLOBIN 9.8 gm/dL (12.0-15.0); MCH 29.7 pg (26.0-34.0); MCHC 33.6 g/dL (28.0-37.0); MCV 88.4 fL (80.0-100.0); RBC 3.3 mil/uL (4.20-5.00); RDW 14.7 % (10.5-14.5); WBC 7.4 thou/uL (4.0-11.0)
[2016-06-14 06:53] LABS: ALBUMIN 2.1 g/dL (3.4-5.0); CALCIUM 8.4 mg/dL (8.5-10.1); CREATININE 2.1 mg/dL (0.6-1.0); PHOSPHORUS 5.4 mg/dL (2.5-4.9); POTASSIUM 3.6 mmol/L (3.5-5.1)
[2016-06-14 07:50] VITALS: BP 134/67
[2016-06-14 13:11] VITALS: BP 149/72
[2016-06-14 20:26] VITALS: BP 144/72
[2016-06-15 04:28] VITALS: BP 136/88
[2016-06-15 06:55] LABS: CALCIUM 8.2 mg/dL (8.5-10.1); POTASSIUM 3.4 mmol/L (3.5-5.1)
[2016-06-15 16:45] VITALS: BP 147/84
[2016-06-15 20:49] VITALS: BP 133/63
[2016-06-16 03:21] VITALS: BP 131/55
[2016-06-16 07:34] VITALS: BP 128/52
[2016-06-16 08:41] LABS: ALBUMIN 2.2 g/dL (3.4-5.0); CALCIUM 8.2 mg/dL (8.5-10.1); CREATININE 1.9 mg/dL (0.6-1.0); PHOSPHORUS 4.1 mg/dL (2.5-4.9); POTASSIUM 4.1 mmol/L (3.5-5.1)
[2016-06-16 10:59] VITALS: BP 132/47
[2016-06-16 16:40] VITALS: BP 129/59
[2016-06-16 20:12] VITALS: BP 139/57
[2016-06-17 04:39] VITALS: BP 135/59
[2016-06-17 05:51] LABS: ALBUMIN 2.1 g/dL (3.4-5.0); CALCIUM 7.8 mg/dL (8.5-10.1); CREATININE 1.8 mg/dL (0.6-1.0); POTASSIUM 3.8 mmol/L (3.5-5.1)
[2016-06-17 07:24] VITALS: BP 129/60
[2016-06-17 11:20] VITALS: BP 120/54
[2016-06-17 17:30] VITALS: BP 113/76
[2016-06-17 20:00] VITALS: BP 133/53
[2016-06-18 04:24] VITALS: BP 136/59
[2016-06-18 04:37] LABS: ALBUMIN 2.1 g/dL (3.4-5.0); CALCIUM 8.1 mg/dL (8.5-10.1); CREATININE 1.8 mg/dL (0.6-1.0); POTASSIUM 3.9 mmol/L (3.5-5.1)
[2016-06-18 07:30] VITALS: BP 144/70
[2016-06-18 11:25] VITALS: BP 132/68
[2016-06-18 16:15] VITALS: BP 130/52
[2016-06-18 21:04] VITALS: BP 142/52
[2016-06-19 04:41] LABS: ALBUMIN 2.2 g/dL (3.4-5.0); CREATININE 1.7 mg/dL (0.6-1.0); PHOSPHORUS 3.8 mg/dL (2.5-4.9); POTASSIUM 4.3 mmol/L (3.5-5.1)
[2016-06-19 07:24] VITALS: BP 119/56
[2016-06-19] MEDS ORDERED: LOPRESSOR25 PO (09:39)
[2016-06-19] MEDS ORDERED: PEPCID20 MG PO (09:39)
[2016-06-19] MEDS ORDERED: DUONEB 2.5-0.5 M3 ML INH (09:39)
[2016-06-19] MEDS ORDERED: ZOLOFT100 MG PO (09:39)
[2016-06-19] MEDS ORDERED: TORSEMIDE10 MG PO (09:39)
[2016-06-19] MEDS ORDERED: ACETAMINOPHEN325 M1 PO (09:39)
[2016-06-19] MEDS ORDERED: MIRALAX17 GM PER TUBE (09:39)
[2016-06-19] MEDS ORDERED: ADULT LOW DOSE81 MG PO (09:39)
[2016-06-19] MEDS ORDERED: ARTIFICIAL TEA1 EACH OPHTHALMIC (09:39)
[2016-06-19 11:08] VITALS: BP 109/56
== END 2016-06-19 16:44 | DRG 853 ==
LOC: ER 13:17 → 2N 15:01 → ICU 15:01 → EROBS 15:01 → ICU 20:02 → 2N 05-27 17:59
PROVIDERS: Emergency Medicine; Hospitalist; Internal Medicine Geriatric Medicine; Internal Medicine Infectious Disease; Internal Medicine Nephrology; Internal Medicine Pulmonary Disease; Physician Assistant; Specialist; Surgery Vascular Surgery
PROC: 0W993ZZ Drainage of Right Pleural Cavity, Percutaneous Approach (ICD-10-PCS; 2016-05-18)
PROC: B548ZZA Ultrasonography of Superior Vena Cava, Guidance (ICD-10-PCS; 2016-05-18)
PROC: 02HV33Z Insertion of Infusion Device into Superior Vena Cava, Percutaneous Approach (ICD-10-PCS; 2016-05-18)
PROC: 0BDN0ZZ Extraction of Right Pleura, Open Approach (ICD-10-PCS; principal; 2016-05-19)
PROC: 0BJ08ZZ Inspection of Tracheobronchial Tree, Via Natural or Artificial Opening Endoscopic (ICD-10-PCS; principal; 2016-05-19)
PROC: 5A1945Z Respiratory Ventilation, 24-96 Consecutive Hours (ICD-10-PCS; 2016-06-10)
PROC: 30233N1 Transfusion of Nonautologous Red Blood Cells into Peripheral Vein, Percutaneous Approach (ICD-10-PCS; 2016-06-11)
DX: A41.9 Sepsis, unspecified organism (principal); J18.9 Pneumonia, unspecified organism; J86.9 Pyothorax without fistula; E43 Unspecified severe protein-calorie malnutrition; J96.91 Respiratory failure, unspecified with hypoxia; E87.2 Acidosis; N17.9 Acute kidney failure, unspecified; E87.1 Hypo-osmolality and hyponatremia; D62 Acute posthemorrhagic anemia; J43.9 Emphysema, unspecified; G72.89 Other specified myopathies; I12.9 Hypertensive chronic kidney disease with stage 1 through stage 4 chronic kidney disease, or unspecified chronic kidney disease; N18.9 Chronic kidney disease, unspecified; L89.150 Pressure ulcer of sacral region, unstageable; M19.90 Unspecified osteoarthritis, unspecified site; F32.9 Major depressive disorder, single episode, unspecified; K58.0 Irritable bowel syndrome with diarrhea; R13.10 Dysphagia, unspecified; L89.152 Pressure ulcer of sacral region, stage 2; Z88.0 Allergy status to penicillin; Z68.32 Body mass index [BMI] 32.0-32.9, adult; Z79.899 Other long term (current) drug therapy; Z90.710 Acquired absence of both cervix and uterus; Z79.82 Long term (current) use of aspirin
CPT/HCPCS: 10078; 10081; 27000; 47405; 50101; 50386; 50417; 50455; 50497; 51301; 52265; 54118; 56524; 56525; 56526; 56527; 56531; 62110; 62900; 65020; 65040; 65043; 65105

== ENCOUNTER 2016-08-28 02:45 | Emergency (ER) | payer OTHER ==
[~2016-08-28] VITALS: Ht 157.5 cm; Wt 68.0 kg
[~2016-08-28 02:45] MED LIST changes: +ACETAMINOPHEN325 M1 PO; +ALDACTONE25 MG PER TUBE; +ARTIFICIAL TEA1 EACH OPHTHALMIC; +COLACE 100 MG100 MG PO; +DEMADEX20 MG PO; +DUONEB 2.5-0.5 M3 ML INH; +ENOXAPARIN30 MG/0.1 SUBQ; +ESTROPIPATE0.75 MG PO; +HYDROCODON-ACE1 EAC7 PO; +LOPRESSOR25 PO; +MILK OF MA2400 MG/10 PO; +MIRALAX17 GM PER TUBE; +NORVASC5 MG PO; +NYSTATIN 1100000 U/M SWISH&SPIT; +OLMESARTAN-HCT1 EAC2 PO; +ONDANSETRON HCL4 M1 IV PUSH; +PEPCID20 MG PO; +ROCEPHIN 11 GM/1001 IV; +TOPROL XL100 MG PO; +TORSEMIDE10 MG PO; +ZOLOFT100 MG PO
[2016-08-28] MEDS ORDERED: AMBIEN 5 MG TABL5 M1 (03:16)
[2016-08-28] MEDS ORDERED: OGEN (03:16)
== END 2016-08-28 03:47 | disposition home or self-care (01) ==
LOC: ER 02:45
DX: S00.03XA Contusion of scalp, initial encounter (principal); I10 Essential (primary) hypertension; M19.90 Unspecified osteoarthritis, unspecified site; Z90.710 Acquired absence of both cervix and uterus; Z90.89 Acquired absence of other organs; Z85.828 Personal history of other malignant neoplasm of skin; Z88.0 Allergy status to penicillin; W01.190A Fall on same level from slipping, tripping and stumbling with subsequent striking against furniture, initial encounter; Y93.01 Activity, walking, marching and hiking; Y92.091 Bathroom in other non-institutional residence as the place of occurrence of the external cause; Y99.8 Other external cause status

== ENCOUNTER 2019-01-19 13:43 | Emergency (ER) | payer OTHER ==
[~2019-01-19] VITALS: Ht 160 cm; Wt 65.8 kg
[~2019-01-19 13:43] MED LIST changes: +AMBIEN 5 MG TABL5 M1; +OGEN
[2019-01-19 17:45] VITALS: BP 198/96
== END 2019-01-19 17:46 | disposition home or self-care (01) ==
LOC: ER 13:43
DX: S00.83XA Contusion of other part of head, initial encounter (principal); S70.01XA Contusion of right hip, initial encounter; I10 Essential (primary) hypertension; M19.90 Unspecified osteoarthritis, unspecified site; Z90.89 Acquired absence of other organs; Z90.710 Acquired absence of both cervix and uterus; Z85.828 Personal history of other malignant neoplasm of skin; Z88.0 Allergy status to penicillin; W01.0XXA Fall on same level from slipping, tripping and stumbling without subsequent striking against object, initial encounter; Y92.89 Other specified places as the place of occurrence of the external cause; Y93.89 Activity, other specified; Y99.8 Other external cause status